=== PATIENT | female | born 1995 | race African-American/Black ===

== ENCOUNTER 2023-02-25 13:41 | Emergency (ER) | payer MEDICAID, SELFPAY ==
[2023-02-25 13:56] VITALS: BP 142/71; PULSE 88; RESP 16; TEMP 37.1; O2SAT 98
--- NOTE | 2023-02-25 14:02 | ED.ABDPAIN ---
HPI - Abdominal Pain General Chief Complaint: Abdominal Pain Stated Complaint: Right Flank Pain Time Seen by Provider: 02/25/23 14:05 Source: patient, RN notes reviewed and old records reviewed Mode of arrival: ambulatory Limitations: no limitations History of Present Illness HPI narrative: 27 year old female who presents to the [facility] care with some right mid upper abdomen pain that started today while she was at the grocery store between 1902-1440.Patient states that discomfort was initially sharp but pain has eased up,denies any right lower abdominal patient. Patient is 8 months . Patient reports that she called her doctor's office but was unable to be seen .Patient does have glucose in her urine, patient reports that she failed her 1 hour glucose tolerance and is scheduled tomorrow to have 3 hour test. Patient reports history of urinary tract infections and hypertension. MD elicited complaint: abdominal pain (right mid lateral) Pertinent past history: past UTI and other (hypertension) Onset (ago): hour(s) (between 10-1100 today) Pain scale (0-10): 6 Quality: sharp Treatments prior to arrival: other (none) Related Data Allergies Allergy/AdvReac Type Severity Reaction Status Date / Time No Known Allergies Allergy Verified 02/25/23 13:55 Review of Systems Review of Systems: CONSTITUTIONAL: Denies fever, chills, or sweats. EYES: Denies visual changes, redness, or discharge. ENT: Denies rhinorrhea, congestion, sore throat, or otalgia. CARDIOVASCULAR: Denies chest pain, palpitations, or edema. RESPIRATORY: Denies cough or dyspnea. GASTROINTESTINAL: Reports right lateral mid abdominal pain,no nausea, vomiting, or diarrhea. GENITOURINARY: Denies dysuria or hematuria. SKIN: Denies rash or itching. MUSCULOSKELETAL: Denies back pain, joint pain, or myalgia. NEUROLOGIC: Denies headache, numbness, or weakness. PSYCHIATRIC: Denies anxiety or depression. All systems reviewed & are unremarkable except as noted in HPI and below PMFSH Past Medical History Medical History (Updated 02/26/23 @ 15:17 by Doretha Garland NP) Hypertension Urinary tract infection Social History Social History (Updated 02/26/23 @ 15:10 by Doretha Garland NP) Smoking status: Never smoker Alcohol intake: unknown Substance use type: does not use Comments At time of signature, agree with nursing past medical, surgical, social and family history. There is no relevant family history pertinent to the presenting complaint Exam Narrative: GENERAL: Well-appearing, well-nourished, and in no acute distress. HEAD: Normocephalic, atraumatic. EYES: PERRLA and EOMI. ENT: Nares clear, no rhinorrhea or epistaxis. Mucous membranes moist. NECK: Supple.no lymphadenopathy CHEST: Clear to auscultation. No respiratory distress.SAO2 98% on room air HEART: Regular rate and rhythm. No murmur heard. Normal peripheral pulses. ABDOMEN: Soft, nontender to right mid lateral abdomen, abdomen rounded is 8 months ., normal active bowel sounds.no flank pain EXTREMITIES: Normal range of motion. No edema. SKIN: Warm, dry, no rash. NEURO: No focal deficits. Alert and oriented x3. Course Course Emergency Course: Patient is aware of diagnosis, understands and agrees to treatment plan.? Anticipatory guidance given.? Patient agrees to follow-up as directed and is aware of reasons to seek care at the emergency department. Portions of this record may have been created with voice recognition software Level of Care: Express Care Visit Vital Signs Vital signs: Vital Signs Temperature 37.1 C 02/25/23 13:56 Pulse Rate 88 02/25/23 13:56 Respiratory Rate 16 02/25/23 13:56 Blood Pressure 142/71 H 02/25/23 13:56 Pulse Oximetry 98 02/25/23 13:56 Oxygen Delivery Room Air 02/25/23 13:56 Temperature 37.1 C 02/25/23 13:56 Pulse Rate 88 02/25/23 13:56 Respiratory Rate 16 02/25/23 13:56 Blood Pressure 142/71 H 02/25/23 13:56 Pulse Ox
== END 2023-02-25 14:34 | disposition home or self-care (01) ==
PROVIDERS: Emergency Provider Registered Nurse
DX: N39.0 Urinary tract infection, site not specified (principal); I10 Essential (primary) hypertension
CPT/HCPCS: 81003; 87086; 87088; 99213; G0463